=== PATIENT | male | born 1975 | race Caucasian/White ===

== ENCOUNTER 2016-07-30 14:11 | Emergency (ER) | payer SELFPAY ==
[2016-07-30 14:21] VITALS: BP 156/107
[2016-07-30] MEDS ORDERED: CYCLOBENZAPRINE HCL 10 MG TABLET PO ONE (15:11)
[2016-07-30] MEDS ORDERED: CYCLOBENZAPRINE HCL 10 MG TABLET ONE (15:17)
--- NOTE | 2016-07-30 15:25 | ERNOTE ---
Back Pain ER HPI Time Seen by Provider: 07/30/16 15:04 Source: patient Exam Limitations: no limitations Allergies/Adverse Reactions: Allergies No Known Allergies Allergy (Unverified 07/30/16 14:21) Home Medications: HOME MEDICATIONS Cyclobenzaprine HCl [Flexeril] 10 mg PO TID PRN #30 tab 07/30/16 [Last Taken Unknown] Naproxen [Naprosyn] 500 mg PO BID #40 tablet 07/30/16 [Last Taken Unknown] Narrative: Patient reports that he injured his back while squatting at the gym this morning. He had back surgery (in [place]) two years ago and just recently started working out again, this morning he was squatting 300lbs and started to have lower back pain radiating to his right buttock, he denies any neuro deficit , no other injury, denies significant past medical problems. When asked about recent pain medication use he denies any, does not have a doctor as he just moved to the area in 05/25. He tried ibuprofen for pain with no relieve. SIZE CUTTER shows 12 different narcotic prescriptions from 9 different providers using multiple pharmacies in the last 50days Date (Duration): 07/30/16 Timing: Reports: constant Quality/Severity: Reports: moderate Location of pain: Reports: lower back Activities at Onset: Reports: activity Recent Injury?: Reports: possibly Possible Precipitating Factor: Reports: lifting Modifying Factors - (Worsens): Reports: movement flexion Associated Symptoms: Denies: fever/chills, constipation/incontinence, nausea/ vomiting, problems urinating, difficulty walking, numbess/weakness in legs Prior Treament: Reports: similar symptoms before. Denies: recently seen Review of Systems - Review of Systems Constitutional: Absent: recent illness, fever Respiratory: Absent: shortness of breath Cardiology: Absent: chest pain Gastrointestinal/Abdominal: Absent: nausea, vomiting, diarrhea, abdominal pain Genitourinary: Present: no symptoms reported Musculoskeletal: Present: See HPI, back pain Neurological: Absent: headache, weakness, numbness - Patient's Past Medical History Patient History - Medical: No pertinent hx Patient History - Cardiac/Respiratory: No pertinent hx Patient History - Cancer: No Hx of Cancer Patient History - Surgical Procedures: Back Surgery Patient History - Other: None - Social History Living Situations: home Psych History: No pertinent hx Smoking Status: Current every day smoker Cigarettes Packs Per Day: 0.5 Alcohol Use: none Drug Use: none Physical Exam - Physical Exam General Appearance: Present: wd/wn, alert, no apparent distress Respiratory: Present: no respiratory distress, normal breath sounds, lungs clear Cardiovascular/Chest: Present: regular rate, rhythm, no murmur Back Exam: Present: normal inspection - scar midline lumbar spine, no vertebral tenderness, other - tender right paravertebral lumbar spine and buttock, pain on straight leg raise bilateral R>L Neurological Exam: Present: alert, oriented, normal mood/affect, no motor/ sensory deficits DTR: N=norm/NB=norm/brisk/A=abs/DD=dull/dimin/HC=hyperactive: Knee (R): Normal, Knee (L): Normal Skin Exam: Present: normal color, warm/dry ED Progress - Vital Signs Patient's Vital Signs:: I have reviewed the patient's vital signs. Vital Signs: Vital Signs 07/30/16 14:17 Temperature 36.1 C L Pulse Rate 87 Respiratory 12 Rate Blood Pressure 156/107 O2 Sat by Pulse 98 Oximetry - Progress/Reassessment Chief Complaint: Back Pain Departure Clinical Impression: Back pain of lumbar region with sciatica - Departure Disposition: Home self-care Condition: Good Instructions: Sciatica, [id number], Form - Excuse from Work, School, or Physical Activity Additional Instructions: call for a follow up appointment Referrals: Bright Treadwell MD [Staff Physician] - Prescriptions: Cyclobenzaprine HCl [Flexeril] 10 mg PO TID PRN #30 tab PRN Reason: MUSCLE SPASMS Naproxen [Naprosyn] 500 mg PO BID #40 tablet
--- OUTSIDE RECORDS SUMMARY | 2016-07-30 15:36 | XMS REPORT | Continuity of Care Document ---
:1975 Author Organization [facility] ([facility]) Address [address] [place] [address] Phone [phone] Care Team Providers Name Role Phone Provider, No-Primary Care Primary Care Provider Unavailable Source Comments This disclosure is being made pursuant to the Care Everywhere program, applicable federal and state laws, and may not contain all informaitonavailable regarding this patient.[facility] ([facility]) Active Allergies and Adverse Reactions No Known Allergies Current Medications Prescription Sig. Disp. Refills Start Date End Date Status ondansetron 8 mg Take 1 tablet 4 tablet 0 07/22/2016 Active disintegrating (8 mg total) tablet by mouth every 8 hours as needed. HYDROcodone-acetamin Take 1-2 16 tablet 0 07/22/2016 Active ophen 5-325 mg per tablets by tablet mouth every 6 hours as needed. HYDROcodone-acetamin Take 1-2 30 tablet 0 06/18/2016 Discontinued ophen 5-325 mg per tablets by 7 tablet mouth every 4 hours as needed. clindamycin 150 mg Take 1 30 capsule 0 06/18/2016 Discontinued capsule capsule (150 7 mg total) by mouth 3 times daily. amoxicillin 500 mg Take 1 tablet 30 tablet 0 06/18/2016 Discontinued tablet (500 mg 7 total) by mouth 3 times daily. HYDROcodone-acetamin Take 1-2 24 tablet 0 07/10/2016 Discontinued ophen 5-325 mg per tablets by 7 tablet mouth every 6 hours as needed. Active Problems Not on file Most Recent Encounters Date Type Specialty Providers Description 07/25/2016 Telephone [facility] Emergency Madai Walters, Chief Comp: Medicine RN Follow-up 07/22/2016 Hospital Encounter [facility] Emergency Jaydon Alatorre Dx: Contusion of Medicine MD Monica right hand, initial encounter (Primary Dx) 07/10/2016 Hospital Encounter [facility] Emergency Jaydon Alatorre Dx: Pain, dental Medicine MD Monica (Primary Dx) 06/18/2016 Hospital Encounter [facility] Emergency Dian Tang DO Dx: Dental caries Medicine (Primary Dx) 05/18/2016 Hospital Encounter [facility] Emergency Dian Tang DO Dx: Acute left-sided Medicine low back pain with sciatica, sciatica laterality unspecified (Primary Dx) 05/02/2016 Telephone [facility] Emergency Dimple Villalpando RN Medicine 04/29/2016 Hospital Encounter [facility] Emergency Jaydon Alatorre Dx: Sciatica of left Medicine MD Monica side (Primary Dx) Social History Tobacco Use Types Packs/Day Years Used Date Current Every Day Smoker 0.5 Smokeless Tobacco: Never Used Alcohol Use Drinks/Week oz/Week Comments No Last Filed Vital Signs Vital Sign Reading Time Taken Blood Pressure 146/78 07/22/2016 9:53 PM CHANNEL DEVELOPMENT MANAGER Pulse 88 07/22/2016 9:53 PM CHANNEL DEVELOPMENT MANAGER Temperature 36.9 C (98.5 F) 07/22/2016 9:53 PM CHANNEL DEVELOPMENT MANAGER Respiratory Rate 18 07/22/2016 9:53 PM CHANNEL DEVELOPMENT MANAGER Height 1.727 m (5' 7.99") 07/22/2016 9:53 PM CHANNEL DEVELOPMENT MANAGER Weight 90.719 kg (200 lb) 07/22/2016 9:53 PM CHANNEL DEVELOPMENT MANAGER Body Mass Index 30.42 07/22/2016 9:53 PM CHANNEL DEVELOPMENT MANAGER Oxygen Saturation 95% 07/22/2016 9:53 PM CHANNEL DEVELOPMENT MANAGER Plan of Care Health Maintenance Due Date Last Done Comments Hepatitis B Vaccine (1 of 3 - Primary Series) 1975 Tdap Vaccine 09/01/1987 Lipid Disorder Screening 1994 MMR Vaccine 1994 Td Vaccine 1994 Pneumococcal Vaccine (1 of 1 - PPSV23) 09/01/1995 Influenza Vaccine: Seasonal (#1) 01/09/2016 Results from Last 3 Months [facility] XR HAND MIN 3 VIEWS RIGHT ([id number]) (07/22/2016 10:27 PM) Impressions Impression: 1. Negative exam. Electronically signed by: Jason Maria MD - 07/22/2016 10:32 PM Narrative EXAM: DX HAND MIN 3 VIEWS RT CLINICIAN'S HISTORY: crush HISTORY REPORTED TO TECHNOLOGIST:aileen ha fell closed onto his hand COMPARISON: None. Technique: A lateral, PA, and 2 oblique views of the right hand were performed. Findings: Joint spaces are well-maintained. I see no fracture, dislocation, or malignant bone destruction. Procedure Note Kevin, Incoming Imaging Results - Sun Jul 22, 2016 10:35 PM CHANNEL DEVELOPMENT MANAGER EXAM: DX HAND MIN 3 VIEWS RT CLINICIAN'S HISTORY: crush HISTORY REPORTED TO TECHNOLOGIST: aileen ha fell closed onto his hand COMPARISON: None. Technique: A lateral, PA, and 2 oblique views of the right hand were performed. Findings: Joint spaces are well-maintained. I see no fracture, dislocation, or malignant bone destruction. IMPRESSION Impression: 1. Negative exam. Electronically signed by: Jason Maria MD - 07/22/2016 10:32 PM [facility] CT LUMBAR WO CONTRAST ([id number]) (05/18/2016 1:22 PM) Impressions IMPRESSION: 1.At L4-L5, there is a moderate generalized disc bulge with a focal left paracentral disc extrusion, extending cranially on the left side x 6 mm, impinging upon the traversing left L5 nerve root. Mild bilateral facet arthropathy. 2.At L5-S1, there is mild disc space narrowing and mild generalized disc bulge, mildly contacting the traversing S1 nerve roots bilaterally, right greater than left. No central or foraminal stenosis. 3.Milder degenerative changes at L2-L3 and L3-L4 as described. Electronically signed by: Dung Serna MD - 05/18/2016 2:07 PM Narrative EXAM: CT SPINE LUMBAR WO CONT CLINICIAN'S HISTORY: injury HISTORY REPORTED TO TECHNOLOGIST:Pt doing squats x 3-4 weeks ago, felt something give in back.LBP radiating to left buttock since. COMPARISON: Lumbar spine radiographs on 07/25/2014 *Dose reduction techniques using the adjustment of the mA and/or kV according to patient size and/or use of AEC or iterative reconstruction were used in the acquisition of this exam.* TECHNIQUE: Noncontrast CT of the lumbar spine with multiplanar reformatted images. FINDINGS: Alignment and curvature are within normal limits. Five lumbar vertebrae are demonstrated. Marrow signal is within normal limits. No fracture. T12-L1 through L1-L2: Normal posterior disc margins with no central or foraminal narrowing. L2-L3: Mild generalized disc bulge with no central or foraminal narrowing. L3-L4 mild generalized disc bulge with no facet arthropathy. No central or foraminal narrowing. L4-L5: There is a moderate generalized disc bulge with a focal left paracentral disc protrusion and extrusion, with cranial extension of the left x 6 mm, impinging upon the traversing left L5 nerve root. No foraminal narrowing. L5-S1: Mild disc space narrowing and mild generalized disc bulge mildly contacting the traversing S1 nerve roots bilaterally, right greater than left, without substantial spinal stenosis. Mild bilateral neural foramen narrowing. Procedure Note Kevin, Incoming Imaging Results - SatMay 18, 2016 2:09 PM CHANNEL DEVELOPMENT MANAGER EXAM: CT SPINE LUMBAR WO CONT CLINICIAN'S HISTORY: injury HISTORY REPORTED TO TECHNOLOGIST: Pt doing squats x 3-4 weeks ago, felt something give in back. LBP radiating to left buttock since. COMPARISON: Lumbar spine radiographs on 07/25/2014 *Dose reduction techniques using the adjustment of the mA and/or kV according to patient size and/or use of AEC or iterative reconstruction were used in the acquisition of this exam.* TECHNIQUE: Noncontrast CT of the lumbar spine with multiplanar reformatted images. FINDINGS: Alignment and curvature are within normal limits. Five lumbar vertebrae are demonstrated. Marrow signal is within normal limits. No fracture. T12-L1 through L1-L2: Normal posterior disc margins with no central or foraminal narrowing. L2-L3: Mild generalized disc bulge with no central or foraminal narrowing. L3-L4 mild generalized disc bulge with no facet arthropathy. No central or foraminal narrowing. L4-L5: There is a moderate generalized disc bulge with a focal left paracentral disc protrusion and extrusion, with cranial extension of the left x 6 mm, impinging upon the traversing left L5 nerve root. No foraminal narrowing. L5-S1: Mild disc space narrowing and mild generalized disc bulge mildly contacting the traversing S1 nerve roots bilaterally, right greater than left, without substantial spinal stenosis. Mild bilateral neural foramen narrowing. IMPRESSION IMPRESSION: 1. At L4-L5, there is a moderate generalized disc bulge with a focal left paracentral disc extrusion, extending cranially on the left side x 6 mm, impinging upon the traversing left L5 nerve root. Mild bilateral facet arthropathy. 2. At L5-S1, there is mild disc space narrowing and mild generalized disc bulge, mildly contacting the traversing S1 nerve roots bilaterally, right greater than left. No central or foraminal stenosis. 3. Milder degenerative changes at L2-L3 and L3-L4 as described. Electronically signed by: Dung Serna MD - 05/18/2016 2:07 PM
== END 2016-07-30 15:23 | disposition home or self-care (01) ==
LOC: ER 14:11
DX: M54.41 Lumbago with sciatica, right side (principal); Z72.0 Tobacco use; X58.XXXA Exposure to other specified factors, initial encounter; Y93.B1 Activity, exercise machines primarily for muscle strengthening; Y92.39 Other specified sports and athletic area as the place of occurrence of the external cause